=== PATIENT | male | born 1945 | race Caucasian/White ===

== ENCOUNTER 2022-06-27 22:13 | Emergency (ER) | payer SELFPAY ==
[2022-06-27 22:25] VITALS: BP 164/69; PULSE 62; RESP 16; TEMP 36.4; O2SAT 98; BMI 25.8
[2022-06-27 23:47] VITALS: BP 148/72; PULSE 61; RESP 16; TEMP 36.4
[2022-06-27] MEDS: VALACYCLOVIR HCL 500 MG TABLET 1000 MG PO (23:48)
--- NOTE | 2022-06-28 16:47 | ED_ITS ---
HPI - Skin/Abscess/Foreign Bdy General Chief complaint: Skin/Abscess/Foreign Body Stated complaint: Left Side Pain Time Seen by Provider: 06/27/22 22:51 History of Present Illness HPI narrative: 77-year-old man presenting to the emergency department with family to cyst interpretation with complaint of left side pain increasing over the last 4 days. Looks like a rash has developed now. No fever. No trauma. Pain is rather intense and needle-like. Does recall history of chicken pox. He did receive the shingles vaccine he thinks a few years ago. Does have a history of diabetes. Related Data Home Medications Medication Instructions Recorded Confirmed aspirin 81 mg chewable tablet 81 mg PO DAILY 01/19/22 03/16/22 glipizide 5 mg tablet 5 mg PO BID 01/19/22 03/16/22 hydrochlorothiazide 25 mg tablet 25 mg PO DAILY 01/19/22 03/16/22 ibuprofen 200 mg capsule 600 mg PO Q6H PRN 01/19/22 03/16/22 insulin regular human 100 unit/mL 2 unit IM DIRECTED 01/19/22 03/16/22 injection solution lisinopril 20 mg tablet 20 mg PO DAILY 01/19/22 03/16/22 metformin 1,000 mg tablet 1,000 mg PO BID 01/19/22 03/16/22 simvastatin 20 mg tablet 20 mg PO .Bedtime 01/19/22 03/16/22 Previous Rx's Medication Instructions Recorded valacyclovir 1 gram tablet 1,000 mg PO TID #21 tabs 06/27/22 Allergies Allergy/AdvReac Type Severity Reaction Status Date / Time No Known Allergies Allergy Unknown Verified 03/30/22 09:47 Review of Systems Status of ROS: Reports: 10 or more systems reviewed and unremarkable except as noted in History and below [facility] Medical History Diabetes type 2, controlled Surgical History History of abdominal surgery History of cholecystectomy Status post ORIF of fracture of ankle (09/07/21) Family History Family/Other Diabetes Father Heart disease, Onset Age: 63 Stroke, Onset Age: 62 Social History Smoking Status: Never smoker Do you use any of these nicotine containing products: None Second hand tobacco smoke exposure: No How often do you have a drink containing alcohol: never AUDIT-C Alcohol total score: 0 Non-prescribed substance use: denies use Exam Narrative: Exam Narrative: Pleasant. Breathing easily. NAD. Cardiovascular in a regular rate and rhythm. Extremities are without edema well perfused. Abdomen is soft. Small surgical site incisions well healed. There is a an irregularly-shaped faintly erythematous rash spreading over left mid side over to the abdomen. Small crusting lesions within. Const: Vital Signs, click to edit/add: Vital Signs - 24 hr 06/27/22 22:25 06/27/22 23:47 Temperature 97.6 F 97.6 F Pulse Rate [Left P ulse Oximeter] 62 61 Respiratory Rate 16 16 Blood Pressure [Ri ght Upper Arm] 164/69 H 148/72 H Pulse Oximetry 98 Oxygen Delivery Me thod Room Air Documenting provider has reviewed patient's vital signs: yes Course Vital Signs Vital signs: Initial Vital Signs Temperature 97.6 F 06/27/22 22:25 Temperature Source Temporal Artery Scan 06/27/22 22:25 Pulse Rate 62 06/27/22 22:25 Respiratory Rate 16 06/27/22 22:25 Blood Pressure 164/69 H 06/27/22 22:25 Blood Pressure Mean 100 06/27/22 22:25 Blood Pressure Position Sitting 06/27/22 22:25 Pulse Oximetry 98 06/27/22 22:25 Oxygen Delivery Method 06/27/22 22:25 Vital Signs Temperature 97.6 F 06/27/22 22:25 Pulse Rate 62 06/27/22 22:25 Respiratory Rate 16 06/27/22 22:25 Blood Pressure 164/69 H 06/27/22 22:25 Pulse Oximetry 98 06/27/22 22:25 Oxygen Delivery Method 06/27/22 22:25 Temperature 97.6 F 06/27/22 23:47 Pulse Rate 61 06/27/22 23:47 Respiratory Rate 16 06/27/22 23:47 Blood Pressure 148/72 H 06/27/22 23:47 Pulse Oximetry 98 06/27/22 22:25 Oxygen Delivery Method 06/27/22 22:25 MDM - Skin/Abscess/Foreign Bdy MDM Narrative Medical decision making narrative: Looks like shingles. Discussed potential contagiousness and higher-risk individuals. Due to time of night is given 1st dose of valacyclovir here in the emergency department. Unfortunately already 4 days in. Medical Records Attestation: I reviewed the patient's medical records. Discharge Plan Discharge Clinical Impression: Shingles, Left sided abdominal pain Patient Disposition: Home w/ Parent or Adult Condition: Stable Additional Instructions: In addition to the prescribed medications, can take ibuprofen or perhaps naproxen for pain. Can also take up to 1000 mg of acetaminophen per dose. Placement of cold moist cloths might be relieving. Further treatment is determined by whether not you have remaining pain once the lesions heal. This could be discussed with your doctor. Remember to watch a little more closely your blood sugars while taking the prednisone. Prednisone and [place] from [facility]. Remember [place] (opiates) can be constipating and contains 325 mg of acetaminophen in each dose. You might want to take senna daily while taking [place]. Valacyclovir sent to your pharmacy. Adem?s de los medicamentos recetados, puede anshul ibuprofeno o sayda vez naproxeno para el dolor. Tambi?n puede anshul hasta 1000 mg de paracetamol por dosis. La colocaci?n de pa?os fr?os y h?medos podr?a ser un alivio. El tratamiento adicional est? determinado por si no tiene dolor restante jeff vez que las lesiones sanan. Bret Harte podr?a ser discutido con mccollum m?dico. Recuerde vigilar un poco m?s de cerca girish niveles de az?car en la brittni mientras katty la prednisona. Prednisona y [facility] de [facility]. Recuerde que Manitou (opi?ceos) puede estar estre?chirag y contiene 325 mg de paracetamol en cada dosis. Es posible que desee anshul sen diariamente mientras katty Manitou. Valaciclovir enviado a mccollum farmacia. Prescriptions: New valacyclovir 1 gram tablet 1,000 mg PO TID Qty: 21 0RF No Action ibuprofen 200 mg capsule 600 mg PO Q6H PRN glipizide 5 mg tablet 5 mg PO BID hydrochlorothiazide 25 mg tablet 25 mg PO DAILY aspirin 81 mg tablet,chewable 81 mg PO DAILY metformin 1,000 mg tablet 1,000 mg PO BID simvastatin 20 mg tablet 20 mg PO .Bedtime lisinopril 20 mg tablet 20 mg PO DAILY insulin regular human 100 unit/mL solution 2 unit IM DIRECTED Rx Instructions: 25 units in the AM and 15 units in the PM. Follow Up/Referrals: Provider,Not a Local [Referring] - Stand Alone Forms: MyHealth Info Instructions
== END 2022-06-27 23:55 | disposition home or self-care (01) ==
PROVIDERS: Emergency Provider Family Medicine; PCP Internal Medicine
DX: R10.9 Unspecified abdominal pain (principal); B02.9 Zoster without complications
CPT/HCPCS: 99283; A9270

== ENCOUNTER 2024-07-13 10:29 | Emergency (ER) | payer MEDICAID, SELFPAY ==
--- OUTSIDE RECORDS SUMMARY | 2024-07-13 10:32 | XMS_ITS | Clinical Summary ---
Author Organization [facility] Address [place], [place] [address] Care Team Providers Care Woodwork Teacher Name Role Phone Isac Miranda MD Primary Care Provider [phone] Allergies No known active allergies Medications aspirin (ECOTRIN) 81 mg enteric coated tablet Take 81 mg by mouth once daily. 06/29/20 21 Active glipiZIDE (GLUCOTROL) 5 mg tablet glipizide 5 mg tablet TAKE ONE TABLET BY MOUTH TWO TIMES A DAY Act jd hydroCHLOROth iazide (HCTZ) 25 mg tablet hydrochlorothiazide 25 mg tablet TAKE 1 TABLET BY MOUTH DAILY Active insulin NPH isophane, U-100, (NovoLIN N NPH U-100 Insulin) 100 unit/mL susp injection Novolin N NPH U-100 Insulin isophane 100 unit/mL subcutaneous susp 20 units in the morning and 15 in the afternoon per paitent and NG record. 02/18/20 20 Active lisinopriL (PRINIVIL; ZESTRIL) 20 mg tablet lisinopril 20 mg tablet TAKE ONE TABLET BY MOUTH ONCE DAILY Active metFORMIN (GLUCOPHAGE) 1,000 mg tablet metformin 1,000 mg tablet TAKE ONE TABLET BY MOUTH TWO TIMES A DAY WITH MORNING AND EVENING MEALS Active simvastatin (ZOCOR) 20 mg tablet simvastatin 20 mg tablet TAKE 1 TABLET (20MG) BY MOUTH EVERY DAY IN THE EVENING Active triamcinolone (ARISTOCORT; KENALOG) 0.1 % creamIndicati ons:Dry skin dermatitis Apply topically to affected area(s) 2 times daily. 30 g 1 07/10/20 21 Active Active Problems Problem Noted Date Diagnosed Date DIABETES 06/04/2002 Encounters Date Type Department Care Team Description 07/13/2024 Nurse Triage [facility] Centralized Nurse Triage Isac Miranda MD Urinary Problem from Last 3 Months Immunizations Name Administration Dates Next Due COVID-19 vaccine (Moderna 10 0mcg/0.5mL) PFCANDIDA 09/12/2020 Influenza, IIV3 (Age 6-35 mos) 06/06/2012 Influenza, IIV3 (Age >=3 years) 04/24/2013,04/27,05/28/2010 Influenza, IIV4 05/16/2014 Influenza, IIV4 (=>6mos) MDV 05/14/2014 Pneumococcal Poly,23-Valent (Pneumovax) 11/17/19 13 Pneumococcal conj 13-Valent (Prevnar 13) 017 Tdap 12/29/2010 Zoster (Zostavax-ZVL, live) 04/04/2017 Social History Tobacco Use Types Packs/Day Years Used Date Smoking Tobacco: Former Smokeless Tobacco: Never Tobacco Cessation:Counseling Given: Yes Alcohol Use Standard Drinks/Week Comments Never 0 (1 standard drink = 0.6 oz pur e alcohol) Social Connections Answer Date Recorded Frequency of Communication with Friends and Fami ly Not on file 07/10/2021 Financial Resource Strain Answer Date R ecorded Difficulty of Paying Living Expenses Not on file 07/10/2021 Difficulty of Paying Living Expenses Not on file 07/10/2021 Sex and Gender Information Value Date Recorded Sex Assigned at Not on file Legal Sex Male 5:26 AM EQUIPMENT MONITOR PHOTOTYPESETTING Gender Identity Not on file Sexual Orientation Not on file Obstetrics History Last Filed Vital Signs Vital Sign Reading Time Taken Comments Blood Pressure 143/75 10/15/2021 1:43 PM CDT Pulse 81 10/15/2021 1:43 PM CDT Temperature 36.4 C (97.5 F) 05/24/2014 2:14 PM EQUIPMENT MONITOR PHOTOTYPESETTING Respiratory Rate - - Oxygen Saturation 99% 10/15/2021 1:43 PM CDT Inhaled Oxygen Concentration - - Weight 59.6 kg (131 lb 8 oz) 07/10/2021 1:16 PM EQUIPMENT MONITOR PHOTOTYPESETTING Height 153.7 cm (5' 0.5) 07/10/2021 1:16 PM EQUIPMENT MONITOR PHOTOTYPESETTING Body Mass Index 25.26 07/10/2021 1:16 PM EQUIPMENT MONITOR PHOTOTYPESETTING Plan of Treatment Health Maintenance Due Date Last Done Comments Depression screening for age 12+ 1957 Zoster (shingles) series for age 50+ (2 of 3) 05/30/2017 04/04/2017 RSV vaccine for adults or (1 - 1-dose 75+ series) 2019 Tetanus booster 12/29/2020 12/29/2010 BMI (ht and wt on same day) for age 18+ 07/10/2022 07/10/2021 COVID-19 vaccine series ( season) 2024 05/25/2021, 09/12/2020, 08/15/2020 Influenza for age 65+ 03/11/2024 05/16/2014 , 05/16/2014, 05/14/2014, Additional history exists Tdap Completed 12/29/2010 Pneumococcal series for age 50+ Completed 7, 11/16/2012 Insurance [facility] ATTN: [place] [address] Care Teams Woodwork Teacher Relationship Specialty Start Date End Date Isac Miranda MD [address] [place] [id number] PCP - General Internal Medicine 09/16/17
[2024-07-13 10:42] VITALS: BP 163/74; PULSE 100; RESP 24; TEMP 36.9; O2SAT 97; BMI 26.6
[2024-07-13 12:01] LABS: Hematocrit 39.8 % (37.0-53.0); Hemoglobin* 13.3 gm/dL (13.5-17.5); Lymphocytes Percent Auto 8.6 % (20-44); Mean Corpuscular HGB Conc 33 gm/dL (32-36); Mean Corpuscular Hemoglobin 28 pg (26-34); Mean Corpuscular Volume 83 fL (80-100); Neutrophils Percent Auto 84.1 % (42.0-72.0); Platelet Count* 289 K/uL (140-440); Red Blood Count 4.81 m/uL (4.30-5.90); White Blood Count* 13.66 K/uL (4.50-11.00)
[2024-07-13 12:02] LABS: Basophils Percent Auto 0.2 % (0.0-3.0); Eosinophils Percent Auto 0.1 % (0.0-7.0); Immature Granulocytes Pct Auto 0.2 %; Monocytes Percent Auto 6.8 % (0.0-11.0)
[2024-07-13 12:04] LABS: Appearance Urine Clear (Clear); Bilirubin Urine Negative (Negative); Blood Urine Trace-lysed (Negative); Color Urine Yellow (Yellow); Glucose Urine 3+ (Negative); Ketones Urine 1+ (Negative); Leukocyte Esterase Urine Negative (Negative); Nitrite Urine Negative (Negative); Protein Urine Negative (Negative); Specific Gravity Urine 1.015 (1.000-1.030); Urobilinogen Urine 0.2 (0.2-1.0); pH Urine 5.5 (5.0-8.5)
[2024-07-13 12:06] LABS: Slide Review Reflex No
[2024-07-13 12:13] LABS: Chloride* 95 mmol/L (96-114); Potassium* 4.1 mmol/L (3.6-5.1); Sodium* 129 mmol/L (135-149)
[2024-07-13 12:15] LABS: Bacteria Urine Many; Squamous Epithelial Cell Urine Few (None-Few)
[2024-07-13 12:16] LABS: Anion Gap 9 mEq/L (7-15); Blood Urea Nitrogen* 34 mg/dL (7-30); Carbon Dioxide* 25 mmol/L (20-32); Creatinine* 1.2 mg/dL (0.5-1.5); Est. Creatinine Clearance* 34.72; Estimated Glomerular Filt Rate 61 ml/min
[2024-07-13 12:17] LABS: Calcium* 9.1 mg/dL (8.4-10.6)
--- OUTSIDE RECORDS SUMMARY | 2024-07-13 12:24 | XMS_ITS | Clinical Summary ---
Author Organization [facility] Address [place], [place] [address] Care Team Providers Care Obiee Report Developer Name Role Phone Isac Miranda MD Primary Care Provider [phone] Allergies No known active allergies Medications aspirin [...] Department Care Team Description 07/13/2024 Nurse Triage [facility] Centralized Nurse Triage Isac Miranda MD Urinary [...] on file Legal Sex Male 5:26 AM CAREER SPECIALIST Gender Identity Not on file Sexual Orientation Not on file Obstetrics History Last Filed Vital Signs Vital Sign Reading Time Taken Comments Blood Pressure 143/75 10/15/2021 1:43 PM CDT Pulse 81 10/15/2021 1:43 PM CDT Temperature 36.4 C (97.5 F) 05/24/2014 2:14 PM CAREER SPECIALIST Respiratory Rate - - Oxygen Saturation 99% 10/15/2021 1:43 PM CDT Inhaled Oxygen Concentration - - Weight 59.6 kg (131 lb 8 oz) 07/10/2021 1:16 PM CAREER SPECIALIST Height 153.7 cm (5' 0.5) 07/10/2021 1:16 PM CAREER SPECIALIST Body Mass Index 25.26 07/10/2021 1:16 PM CAREER SPECIALIST Plan of Treatment Health Maintenance Due Date [...] for age 50+ Completed 7, 11/16/2012 Insurance [facility] ATTN: [place] [address] Care Teams Obiee Report Developer Relationship Specialty Start Date End Date Isac Miranda MD [address] [place] [id number] PCP - General Internal Medicine 09/16/17
[2024-07-13 12:25] LABS: Glucose* 375 mg/dL (60-115)
[2024-07-13] MEDS: cefTRIAXone 1 GM in 0.9 % SODIUM CHLORIDE Mini-bag 100 ML IVPB (12:55)
[2024-07-13] MEDS: INSULIN REGULAR, HUMAN 100 UNIT/ML VIAL 7 UNIT SUBCUT (13:21)
[2024-07-13 13:36] LABS: Glucose, Point-of-Care* 304 mg/dl (60-115)
--- NOTE | 2024-07-13 14:23 | ED_ITS ---
HPI - Male Genitourinary General Time Seen by Provider: 14:23 Date Seen: 07/13/24 Chief complaint: Urogenital Problems, Male Stated complaint: Bladder pain, difficulty urinating Time Seen by Provider: 07/13/24 11:19 Source: patient Mode of arrival: ambulatory Limitations: no limitations History of Present Illness HPI Narrative: Patient is a very pleasant 79-year-old with history of diabetes, remote history of UTI 15 years ago, hypertension who comes to the emergency room accompanied by his for evaluation regarding painful urination associated with feeling c old, loss of appetite over the last 3 days. Patient notes that he is urinating frequently and he has pain in his lower abdomen after he is done urinating more so than when he is urinating. While he has lost his appetite he has no vomiting or diarrhea. No known fever but states that he feels cold. Has not noticed any blood in his urine. Patient does not feel that his abdomen is distended or ch anged. He notes discomfort is abdomen is usually after trying to urinate any shows this to be the entire mid and lower aspect of his belly. Patient notes that he has not been checking his blood sugars at home. He also skipped his insulin this morning. Usually take 7 units in the morning and 17 units in the evening. Related Data Home Medications ?Medication ?Instructions ?Recorded ?Confirmed aspirin 81 mg chewable tablet 81 mg PO DAILY 01/19/22 03/16/22 glipizide 5 mg tablet 5 mg PO BID 01/19/22 03/16/22 hydrochlorothiazide 25 mg tablet 25 mg PO DAILY 01/19/22 03/16/22 ibuprofen 200 mg capsule 600 mg PO Q6H PRN 01/19/22 03/16/22 insulin regular human 100 unit/mL 2 unit IM DIRECTED 01/19/22 03/16/22 injection solution lisinopril 20 mg tablet 20 mg PO DAILY 01/19/22 03/16/22 metformin 1,000 mg tablet 1,000 mg PO BID 01/19/22 03/16/22 simvastatin 20 mg tablet 20 mg PO .Bedtime 01/19/22 03/16/22 Previous Rx's ?Medication ?Instructions ?Recorded valacyclovir 1 gram tablet 1,000 mg PO TID #21 tabs 06/27/22 Allergies Allergy/AdvReac Type Severity Reaction Status Date / Time No Known Allergies Allergy Unknown Verified 03/30/22 09:47 Review of Systems Status of ROS: Reports: 6 or more systems reviewed and unremarkable except as noted in History and below Const: Reports: chills; Denies: fever or fatigue ENMT: Denies: throat pain, nasal discharge or nasal congestion Cardio: Denies: chest pain, swelling of feet/ankles, lightheadedness or shortness of breath with exertion Resp: Denies: shortness of breath or cough GI: Reports: abdominal pain and nausea; Denies: vomiting or diarrhea : Reports: painful urination, urinary frequency and urinary urgency; Denies: blood in urine Musculo: Denies: back pain Endo: Denies: fatigue PFSH PFSH Medical History Diabetes type 2, controlled ?E11.9 - Type 2 diabetes mellitus without complications (ICD-10) Surgical History Status post ORIF of fracture of ankle (09/07/21) ?Z98.890 - Other specified postprocedural states (ICD-10) ?Z87.81 - Personal history of (healed) traumatic fracture (ICD-10) History of cholecystectomy ?Z90.49 - Acquired absence of other specified parts of digestive tract (ICD- 10) History of abdominal surgery ?Z98.890 - Other specified postprocedural states (ICD-10) Family History Family/Other Diabetes Father Heart disease, Onset Age: 63 Stroke, Onset Age: 62 Social History Smoking Status: Never smoker Do you use any of these nicotine containing products: None Second hand tobacco smoke exposure: No How often do you have a drink containing alcohol: never AUDIT-C Alcohol total score: 0 Non-prescribed substance use: denies use Exam Narrative: Exam Narrative: Patient is alert and oriented. Nontoxic in appearance. External ears eyes nose clear. Neck is supple. Face symmetrical. Mentation normal and GCS of 15 Heart with a regular rate and rhythm in the mid 90s. Lungs are clear bilaterally. Abdomen is soft nontender. No rebound tenderness in the right lower quadrant. No pain in the right upper quadrant. Really no pain at all with palpation. Lower extremities without edema. Const: Vital Signs, click to edit/add: Vital Signs - 24 hr 07/13/24 10:42 07/13/24 14:53 Temperature 98.5 F Pulse Rate [Pulse Oximeter] 100 96 Respiratory Rate 24 20 Blood Pressure [Ri ght Upper Arm] 163/74 H 140/79 H Pulse Oximetry 97 98 Oxygen Delivery Me thod Room Air Room Air Documenting provider has reviewed patient's vital signs: yes Course Course ED Course: Patient had 175 bladder scan. Able to urinate after that once again. Will check CBC and basic as well as urinalysis. Reevaluation(s) Reevaluation #1: Patient noted to have elevated white count as well as urinalysis suggestive of UTI with 10-25 white cells, dysuria. Because he is also experiencing chills he is borderline acute complicated rather than simple UTI. Therefore will give him 1 dose of Rocephin IV. Blood sugar elevated at 375. Did give him 7 units of subcu insulin here. Bicarb is normal as is potassium. Vital Signs Vital signs: Initial Vital Signs Temperature 98.5 F 07/13/24 10:42 Temperature Source Temporal Artery Scan 07/13/24 10:42 Pulse Rate 100 07/13/24 10:42 Respiratory Rate 24 07/13/24 10:42 Blood Pressure 163/74 H 07/13/24 10:42 Blood Pressure Mean 103 07/13/24 10:42 Blood Pressure Position Sitting 07/13/24 10:42 Pulse Oximetry 97 07/13/24 10:42 Oxygen Delivery Method Room Air 07/13/24 10:42 Vital Signs Temperature 98.5 F 07/13/24 10:42 Pulse Rate 100 07/13/24 10:42 Respiratory Rate 24 07/13/24 10:42 Blood Pressure 163/74 H 07/13/24 10:42 Pulse Oximetry 97 07/13/24 10:42 Oxygen Delivery Method Room Air 07/13/24 10:42 Temperature 98.5 F 07/13/24 10:42 Pulse Rate 96 07/13/24 14:53 Respiratory Rate 20 07/13/24 14:53 Blood Pressure 140/79 H 07/13/24 14:53 Pulse Oximetry 98 07/13/24 14:53 Oxygen Delivery Method Room Air 07/13/24 14:53 Medications Administered Medications: Discontinued Medications Generic Name Dose Route Start Last Admin Trade Name Mattie PRN Reason Stop Dose Admin Ceftriaxone Sodium 1 gm/ 100 mls @ 200 mls/hr 07/13/24 12:25 07/13/24 12:55 Sodium Chloride IVPB 07/13/24 12:26 200 mls/hr ONCE ONE Administration Insulin Human Regular 7 unit 07/13/24 12:59 07/13/24 13:21 Insulin Regular, Human 100 Unit/Ml Vial SUBCUT 07/13/24 13:00 7 unit ONCE ONE Administration MDM - Male Genitourinary MDM Narrative Medical decision making narrative: 1. UTI-patient noted to have the onset of urinary symptoms 3 days ago in associa tion with feeling cold or chills. His white count is elevated at 13 the and his urine suggests a UTI. Have treated him with Rocephin 1 g IV in the ED and he will be discharged home with Augmentin 875 p.o. b.i.d. x7 days. He has no vomiting, a fever or or persistent tachycardia to suggest that he is septic at this time. Waiting on the culture at this time. He is instructed to take the full dose of antibiotics through the 7 days. At this time I do talk to him about urinary retention. Do not feel that he needs a catheter at this time but should he have increasing problems and inability to urinate he will need to return to the emergency room for catheter placement. He understands this. 2. Hyperglycemia-patient has not been taking his medicines today and has not been checking his blood sugars. Strongly encourage him to take his medicines as prescribed. He will need to check his blood sugar and take his insulin as scheduled. Second glucose pending prior to departure. Patient will need to follow-up for persistent elevated sugars. No evidence of DKA or significant electrolyte abnormality. 3. Disposition-home at this time. Return/seek medical attention for worsening symptoms. If improving still want him to follow up with his primary MD in 1 weeks time for recheck to ensure there is no or persistent urinary retention or any remnants of infection. Interview and patient's stay Augmentin with the assistance of vertical boring mill operator. Medical Records Attestation: I reviewed the patient's medical records. Lab Data Attestation: I reviewed the patient's lab results. Labs: Lab Results 07/13/24 07/13/24 07/13/24 Range/Units 11:51 11:55 13:20 WBC 13.66 H (4.50-11.00) K/uL RBC 4.81 (4.30-5.90) m/uL Hgb 13.3 L (13.5-17.5) gm/dL Hct 39.8 (37.0-53.0) % MCV 83 (80-100) fL MCH 28 (26-34) pg MCHC 33 (32-36) gm/dL RDW Coeff of Sharlene 13.0 (11.5-15.5) % Plt Count 289 (140-440) K/uL Neut % (Auto) 84.1 H (42.0-72.0) % Lymph % (Auto) 8.6 L (20-44) % [place] % (Auto) 6.8 (0.0-11.0) % Eos % (Auto) 0.1 (0.0-7.0) % Baso % (Auto) 0.2 (0.0-3.0) % Neut # (Auto) 11.50 H (1.7-7.0) K/uL Lymph # (Auto) 1.20 (0.90-2.90) K/uL [place] # (Auto) 0.90 (0.00-0.90) K/UL Eos # (Auto) 0.00 (0.00-0.50) K/uL Baso # (Auto) 0.00 (0.00-0.30) K/uL Abs Immat Gran (auto) 0.00 (0.00-0.30) K/uL Imm/Tot Granulo (auto) 0.2 % Sodium 129 L (135-149) mmol/L Potassium 4.1 (3.6-5.1) mmol/L Chloride 95 L (96-114) mmol/L Carbon Dioxide 25 (20-32) mmol/L Anion Gap 9 (7-15) mEq/L BUN 34 H (7-30) mg/dL Creatinine 1.2 (0.5-1.5) mg/dL Estimated Creat Clear 34.72 Estimated GFR 61 ml/min Glucose 375 H* (60-115) mg/dL Calcium 9.1 (8.4-10.6) mg/dL Urine Color Yellow (Yellow) Urine Appearance Clear (Clear) Urine pH 5.5 (5.0-8.5) Ur Specific [place] 1.015 (1.000-1.030) Urine Protein Negative (Negative) Urine Glucose (UA) 3+ A (Negative) Urine Ketones 1+ A (Negative) Urine Blood Trace-lysed A (Negative) Urine Nitrite Negative (Negative) Urine Bilirubin Negative (Negative) Urine Urobilinogen 0.2 (0.2-1.0) Ur Leukocyte Esterase Negative (Negative) Urine RBC 2-5 A (0-2) Urine WBC 10-25 A (0-5) Ur Squamous Epith Cells Few (None-Few) Urine Bacteria Many A (None) POC Glucose 304 H (60-115) mg/dl Discharge Plan Discharge Clinical Impression: UTI (urinary tract infection), Hyperglycemia Patient Disposition: Home, Self-Care Condition: Improved Additional Instructions: Continue antibiotic Augmentin for the treatment of UTI. Take all of your doses for the full 7 days. You are holding back some urine based on the ultrasound. If you have worsening difficulty with not being able to urinate you will need to return to the emergency room. Return to the emergency room for high fever, vomiting and as needed. If you are improving, will need you to follow-up with your regular doctor in a bout 7 days for a recheck of your bladder scan and to ensure your infection is gone. YOUR BLOOD SUGAR WAS QUITE HIGH TODAY. Please check your blood sugars frequently at home. Return as needed to the ER. Prescriptions: No Action ibuprofen 200 mg capsule 600 mg PO Q6H PRN glipizide 5 mg tablet 5 mg PO BID hydrochlorothiazide 25 mg tablet 25 mg PO DAILY aspirin 81 mg tablet,chewable 81 mg PO DAILY metformin 1,000 mg tablet 1,000 mg PO BID simvastatin 20 mg tablet 20 mg PO .Bedtime lisinopril 20 mg tablet 20 mg PO DAILY insulin regular human 100 unit/mL solution 2 unit IM DIRECTED Rx Instructions: 25 units in the AM and 15 units in the PM. valacyclovir 1 gram tablet 1,000 mg PO TID Qty: 21 0RF Follow Up/Referrals: Provider,Not a Local [Primary Care Provider] - Stand Alone Forms: Clerts! Info Instructions
[2024-07-13 14:53] VITALS: BP 140/79; PULSE 96; RESP 20; O2SAT 98
== END 2024-07-13 15:03 | disposition home or self-care (01) ==
PROVIDERS: Emergency Provider Family Medicine
DX: N39.0 Urinary tract infection, site not specified (principal); R73.9 Hyperglycemia, unspecified
CPT/HCPCS: 36415; 51798; 80048; 81001; 82947; 85025; 87086; 87186; 96365; 99284; J0696; J1815